=== PATIENT | female | born 1945 | race Hispanic/Latino ===

== ENCOUNTER → 2017-11-12 | Day surgery (SDC) | payer MEDICARE ==
[2017-11-10 13:36] LABS: BASOPHILS # (AUTO) 0.1 (0.0-0.1); BASOPHILS % 0.5 % (0.0-1.0); EOSINOPHILS # (AUTO) 0.1 (0.0-0.4); EOSINOPHILS % 1.1 % (0.0-6.0); HEMATOCRIT 38.5 % (34.2-44.1); HEMOGLOBIN 13.2 g/dL (12.0-16.0); LYMPHOCYTES # (AUTO) 2.7 (1.0-3.2); LYMPHOCYTES % 29.6 % (18.0-39.1); MEAN CORPUSCULAR HEMOGLOBIN 29.3 pg (28-32); MEAN CORPUSCULAR HGB CONC 34.3 g/dL (31-35); MEAN CORPUSCULAR VOLUME 85.6 fL (81-99); MONOCYTES # (AUTO) 0.8 (0.2-0.8); MONOCYTES % 8.7 % (4.4-11.3); NEUTROPHILS # (AUTO) 5.5 (2.1-6.9); NEUTROPHILS % 59.9 % (38.7-80.0); PLATELET COUNT 283 x10e3/uL (140-360); RED CELL DISTRIBUTION WIDTH 13.2 % (11.7-14.4)
[~2017-11-12] MED LIST: AMITIZA24 MCG PO; ANORA INH; ATORVASTATIN CA10 MG PO; CEPHALEXIN500 MG PO; CYMBALTA30 MG PO; FENTANYL CITRATE/PF 100MCG/2 ML INJ ONE; GLIMEPIRIDE2 MG PO; LEVOTHYROXINE50 MCG PO; LIDOCAINE HCL 2% LOCAL INJ 5 ML SDV VIAL INJ ONE; LOSARTAN-HCTZ1 EACH PO; METFORMIN HCL500 MG PO; METOPROLOL TART25 MG PO; MIDAZOLAM HCL 2 MG/2 ML VIAL ONE; NEXIUM40 MG PO; OXYBUTYNIN CHLOR5 M1 PO; PROPOFOL IV EMULSION 10 MG/ML 50 ML VIAL ONE; SULFAMETHOXAZO1 EAC1 PO; TYLENOL WITH C1 EACH PO
== END | disposition home or self-care (01) ==
LOC: OR 07:35
PROVIDERS: ATTEND Internal Medicine Gastroenterology
DX: Z12.11 Encounter for screening for malignant neoplasm of colon (principal); K57.30 Diverticulosis of large intestine without perforation or abscess without bleeding; K58.9 Irritable bowel syndrome, unspecified; K64.8 Other hemorrhoids; K21.9 Gastro-esophageal reflux disease without esophagitis; E11.9 Type 2 diabetes mellitus without complications; I10 Essential (primary) hypertension; E78.6 Lipoprotein deficiency; J45.909 Unspecified asthma, uncomplicated; E66.01 Morbid (severe) obesity due to excess calories; F41.9 Anxiety disorder, unspecified; Z01.810 Encounter for preprocedural cardiovascular examination; Z01.812 Encounter for preprocedural laboratory examination; Z68.43 Body mass index [BMI] 50.0-59.9, adult
CPT/HCPCS: 36415 ×2; 82948; 85025; 93005; G0121; J2001; J2250; 45378

== ENCOUNTER 2018-02-09 09:17 | Emergency (ER) | payer MEDICARE, OTHER ==
[~2018-02-09] VITALS: Ht 152.4 cm; Wt 123.4 kg
[~2018-02-09 09:17] MED LIST changes: -FENTANYL CITRATE/PF 100MCG/2 ML INJ ONE; -LIDOCAINE HCL 2% LOCAL INJ 5 ML SDV VIAL INJ ONE; -MIDAZOLAM HCL 2 MG/2 ML VIAL ONE; -PROPOFOL IV EMULSION 10 MG/ML 50 ML VIAL ONE
[2018-02-09] MEDS ORDERED: SODIUM CHLORIDE 0.9% 1000ML 1,000 ML IV STA (09:27)
[2018-02-09] MEDS ORDERED: MORPHINE SULFATE 2 MG/ML SYR IV STA (09:27)
[2018-02-09] MEDS ORDERED: PANTOPRAZOLE 40 MG 10ML VIAL IV STA (09:27)
[2018-02-09] MEDS ORDERED: ONDANSETRON HCL INJ 2 MG/ML VIAL IV STA (09:27)
[2018-02-09 10:08] LABS: BASOPHILS % 0.4 % (0.0-1.0); EOSINOPHILS # (AUTO) 0.1 (0.0-0.4); EOSINOPHILS % 0.9 % (0.0-6.0); HEMOGLOBIN 13.4 g/dL (12.0-16.0); LYMPHOCYTES # (AUTO) 2.1 (1.0-3.2); LYMPHOCYTES % 20.6 % (18.0-39.1); MEAN CORPUSCULAR HEMOGLOBIN 30.5 pg (28-32); MEAN CORPUSCULAR HGB CONC 34.4 g/dL (31-35); MEAN CORPUSCULAR VOLUME 88.6 fL (81-99); MONOCYTES # (AUTO) 0.7 (0.2-0.8); MONOCYTES % 6.8 % (4.4-11.3); NEUTROPHILS # (AUTO) 7.1 (2.1-6.9); NEUTROPHILS % 70.9 % (38.7-80.0); PLATELET COUNT 245 x10e3/uL (140-360); RED CELL DISTRIBUTION WIDTH 12.6 % (11.7-14.4)
--- NOTE | 2018-02-09 10:08 | Diagnostic Imaging Report ---
PROCEDURE: CHEST SINGLE (PORTABLE) COMPARISON: None. INDICATIONS: STOMACH PAIN FINDINGS: Lung volumes are low with vascular crowding in the perihilar regions. No focal consolidation, pleural effusion, or pneumothorax. Tortuosity of the thoracic aorta with rightward tracheal deviation. Cardiomediastinal contour is otherwise within normal limits when accounting for portable, AP technique. No mary kay pneumoperitoneum. Surgical clips project over the right upper quadrant of the abdomen. No acute osseous abnormality. CONCLUSION: Low lung volumes without acute cardiopulmonary abnormality. Dictated by: Benedicto Moscoso M.D. on 02/09/2018 at 10:13 Electronically approved by: Benedicto Moscoso M.D. on 02/09/2018 at 10:13
[2018-02-09 10:11] LABS: INR 1.04; PROTHROMBIN TIME 12.8 seconds (11.9-14.5)
[2018-02-09 10:13] LABS: PARTIAL THROMBOPLASTIN TIME 23.5 seconds (23.8-35.5)
[2018-02-09 10:21] LABS: ALANINE AMINOTRANSFERASE 20 IU/L (0-55); ALBUMIN 3.8 g/dL (3.5-5.0); ALKALINE PHOSPHATASE 69 IU/L (40-150); AMYLASE 32 U/L (25-125); BLOOD UREA NITROGEN 16 mg/dL (7-26); BUN/CREATININE RATIO 21 (6-25); CALCIUM 9.9 mg/dL (8.4-10.2); CARBON DIOXIDE 27 mmol/L (22-29); CHLORIDE 103 mmol/L (98-107); CREATINE KINASE 84 IU/L (29-168); CREATININE, SERUM 0.78 mg/dL (0.57-1.11); EST GLOMERULAR FILTRATION RATE > 60 ML/MIN (60-); GLUCOSE 229 mg/dL (74-118); LIPASE 10 U/L (8-78); MAGNESIUM 1.8 MG/DL (1.3-2.1); SODIUM 141 mmol/L (136-145)
[2018-02-09 10:25] LABS: CLARITY,URINE CLOUDY (CLEAR); COLOR,URINE YELLOW (YELLOW); LEUKOCYTE ESTERASE ,URINE 2+ (NEGATIVE)
[2018-02-09 10:26] LABS: BILIRUBIN,URINE NEGATIVE (NEGATIVE); KETONES,URINE NEGATIVE (NEGATIVE); NITRITE,URINE NEGATIVE (NEGATIVE); PROTEIN,URINE DIPSTICK NEGATIVE (NEGATIVE); URINE UROBILINOGEN 0.2 mg/dL (0.2 - 1)
[2018-02-09 10:27] LABS: WBC,URINE (MAN) >50 /HPF (0-5)
[2018-02-09 10:28] LABS: AMORPHOUS SEDIMENT,URINE FEW (FEW); BACTERIA,URINE MANY /HPF; EPITHELIAL CELLS,URINE FEW /LPF; RBC,URINE 0-5 /HPF (0-5)
[2018-02-09] MEDS ORDERED: LEVOFLOXACIN 500MG/D5W 100ML 100 ML IV ONE (10:30)
--- NOTE | 2018-02-09 12:55 | Diagnostic Imaging Report ---
PROCEDURE: CT ABDOMEN AND PELVIS WITH CONTRAST TECHNIQUE: The abdomen and pelvis were scanned utilizing a multidetector helical scanner from the diaphragm to the lesser trochanter after the IV administration of 100 cc of Isovue 370 and the oral administration of water. Coronal and sagittal multiplanar reformations were obtained. COMPARISON: None. INDICATIONS: ABDOMEN PAIN FINDINGS: LOWER THORAX: Scattered fibrotic changes in the right middle lobe and bilateral lower lobes. No pleural or pericardial effusion.. HEPATOBILIARY: No focal hepatic lesion or intrahepatic biliary ductal dilatation. Calcified granulomata in segments 2 and 3. Status post cholecystectomy with surgical clips in the gallbladder fossa. SPLEEN: No splenomegaly. Small splenule in the hilum. PANCREAS: No focal masses or ductal dilatation. ADRENALS: No adrenal nodules. KIDNEYS/URETERS: Subcentimeter hypoattenuating lesions in the kidneys, too small to further characterize but likely to represent small cysts. No hydronephrosis. No renal or ureteral calculi. PELVIC ORGANS/BLADDER: The urinary bladder is unremarkable. Uterus is anteflexed and appears normal. No adnexal mass. PERITONEUM / RETROPERITONEUM: No ascites. No pneumoperitoneum. LYMPH NODES: No lymphadenopathy. VESSELS: Atherosclerotic calcification of the abdominal aorta and branch vessels without aneurysmal dilatation. Portal vein, splenic vein, and central superior mesenteric vein are patent. GI TRACT: There are a few diverticula along the course of the sigmoid colon without evidence of diverticulitis. The appendix is not identified and may have been removed. Prominence of the gastric rugal folds as a consequence of under distention. No small bowel dilatation to suggest obstruction. BONES AND SOFT TISSUES: No focal soft tissue abnormalities. No osseous destructive lesions. Degenerative changes of the hip joints, sacroiliac joints, and lumbar spine. IMPRESSION: No acute intra-abdominal or pelvic CT abnormalities. Large bowel diverticulosis without findings of diverticulitis. Atherosclerotic vascular disease. Dictated by: Benedicto Moscoso M.D. on 02/09/2018 at 13:00 Electronically approved by: Benedicto Moscoso M.D. on 02/09/2018 at 13:00
[2018-02-09 14:51] VITALS: BP 159/69
[2018-02-09] MEDS ORDERED: SODIUM CHLORIDE 0.9% 50ML 50 ML ONE (21:12)
[2018-02-09] MEDS ORDERED: IOPAMIDOL 370 MG/ML 200 ML INFUS..BTL INJ ONE (21:12)
== END 2018-02-09 15:00 | disposition home or self-care (01) ==
LOC: ER 09:17
DX: R10.32 Left lower quadrant pain (principal); I10 Essential (primary) hypertension; E78.5 Hyperlipidemia, unspecified; K21.9 Gastro-esophageal reflux disease without esophagitis; E66.9 Obesity, unspecified
CPT/HCPCS: 36415; 71045; 74177; 80053; 81001; 82150; 82550; 82553; 83605; 83690; 83735; 84484; 85025; 85610; 85730; 93005; 99284; J1956; J2270; J2405; J7030; Q9967

== ENCOUNTER 2018-02-11 16:08 | Emergency (ER) | payer MEDICARE ==
[~2018-02-11] VITALS: Ht 152.4 cm; Wt 122.5 kg
[2018-02-11] MEDS ORDERED: SODIUM CHLORIDE 0.9% 1000ML 1,000 ML IV ONE ×2 (16:45→17:15)
[2018-02-11 16:52] LABS: BASOPHILS % 0.4 % (0.0-1.0); EOSINOPHILS % 0.2 % (0.0-6.0); HEMATOCRIT 38.9 % (34.2-44.1); HEMOGLOBIN 13.6 g/dL (12.0-16.0); MEAN CORPUSCULAR HEMOGLOBIN 30.1 pg (28-32); MEAN CORPUSCULAR VOLUME 86.1 fL (81-99); MONOCYTES # (AUTO) 0.8 (0.2-0.8); NEUTROPHILS % 70.7 % (38.7-80.0); PLATELET COUNT 238 x10e3/uL (140-360); RED BLOOD COUNT 4.52 x10e6/uL (3.6-5.1); RED CELL DISTRIBUTION WIDTH 12.4 % (11.7-14.4)
[2018-02-11 17:09] LABS: ALANINE AMINOTRANSFERASE 20 IU/L (0-55); ALBUMIN 3.6 g/dL (3.5-5.0); ALBUMIN/GLOBULIN RATIO 0.9 (0.8-2.0); ALKALINE PHOSPHATASE 70 IU/L (40-150); ANION GAP 16.9 mmol/L (8-16); BLOOD UREA NITROGEN 12 mg/dL (7-26); BUN/CREATININE RATIO 16 (6-25); CALCIUM 9.6 mg/dL (8.4-10.2); CARBON DIOXIDE 22 mmol/L (22-29); CHLORIDE 99 mmol/L (98-107); CREATININE, SERUM 0.75 mg/dL (0.57-1.11); EST GLOMERULAR FILTRATION RATE > 60 ML/MIN (60-); GLUCOSE 184 mg/dL (74-118); POTASSIUM 3.9 mmol/L (3.5-5.1); SODIUM 134 mmol/L (136-145)
[2018-02-11] MEDS ORDERED: KETOROLAC TROMETHAMINE 30 MG/ML VIAL IV STA (17:11)
[2018-02-11] MEDS ORDERED: MORPHINE SULFATE 5 MG/ML VIAL IV ONE (17:15)
[2018-02-11] MEDS ORDERED: METOCLOPRAMIDE HCL 10 MG/2ML VIAL IV ONE (17:15)
[2018-02-11] MEDS ORDERED: KETOROLAC TROMETHAMINE 30 MG/ML VIAL IV SCH (17:30)
[2018-02-11] MEDS ORDERED: MORPHINE SULFATE INJ 4 MG/ML INJ IV NR (17:45)
[2018-02-11] MEDS ORDERED: MELOXICAM7.5 MG PO (18:08)
[2018-02-11] MEDS ORDERED: ULTRAM 50MG50 MG PO (18:08)
[2018-02-11] MEDS ORDERED: LOSARTAN-HCTZ1 EAC2 PO (18:08)
[2018-02-11] MEDS ORDERED: GABAPENTIN300 MG PO (18:08)
[2018-02-11] MEDS ORDERED: LEVAQUIN500 MG PO (18:08)
[2018-02-11] MEDS ORDERED: LASIX40 MG PO (18:08)
[2018-02-11] MEDS ORDERED: CALCET TABLET1 EACH (18:11)
[2018-02-11 18:32] LABS: CLARITY,URINE CLEAR (CLEAR); COLOR,URINE YELLOW (YELLOW); LEUKOCYTE ESTERASE ,URINE NEGATIVE (NEGATIVE)
[2018-02-11 18:33] LABS: BILIRUBIN,URINE NEGATIVE (NEGATIVE); KETONES,URINE NEGATIVE (NEGATIVE); NITRITE,URINE NEGATIVE (NEGATIVE); PROTEIN,URINE DIPSTICK NEGATIVE (NEGATIVE); URINE UROBILINOGEN 0.2 mg/dL (0.2 - 1)
[2018-02-11 18:45] LABS: EPITHELIAL CELLS,URINE MODERATE /LPF; WBC,URINE (MAN) 0-5 /HPF (0-5)
--- NOTE | 2018-02-11 18:49 | Diagnostic Imaging Report ---
PROCEDURE: CT ABDOMEN AND PELVIS WITHOUT CONTRAST TECHNIQUE: The abdomen and pelvis were scanned utilizing a multidetector helical scanner from the diaphragm to the lesser trochanter after the oral administration of water. No IV contrast was administered per protocol. Coronal and sagittal multiplanar reformations were obtained. COMPARISON: [facility], CT, CT ABDOMEN/PELVIS W, 02/09/2018, 12:20. INDICATIONS: left flank, stone protocol FINDINGS: ABSENCE OF INTRAVENOUS CONTRAST DECREASES SENSITIVITY FOR DETECTION OF FOCAL LESIONS AND VASCULAR PATHOLOGY. LOWER THORAX: Stable fibrotic changes/scarring in the right middle lobe and bilateral lower lobes. HEPATOBILIARY: Borderline low attenuation of the hepatic parenchyma, likely reflecting mild steatosis. Stable calcified granulomas in segment II/III. No focal lesions. No biliary ductal dilation. Cholecystectomy clips. SPLEEN: No splenomegaly. PANCREAS: No focal masses or ductal dilatation. ADRENALS: No adrenal nodules. KIDNEYS/URETERS: No renal or ureteral calculi, hydronephrosis, or obstruction. No contour abnormalities. PELVIC ORGANS/BLADDER: Bladder and uterus are unremarkable. No adnexal masses. PERITONEUM / RETROPERITONEUM: No free air or fluid. LYMPH NODES: No lymphadenopathy. VESSELS: Mild atherosclerotic calcification of the abdominal aorta. GI TRACT: No bowel dilation or evidence of obstruction. Stable few scattered diverticula in the sigmoid colon, without diverticulitis. BONES AND SOFT TISSUES: No aggressive lytic lesions. Multilevel degenerative disc changes in the lower thoracic and lumbosacral spine. Degenerative changes in bilateral hip and sacroiliac joints. Soft tissues are unremarkable. IMPRESSION: 1. No renal, ureteral, or bladder calculi, hydronephrosis, or obstruction. 2. No acute abdominopelvic abnormalities, in this noncontrast exam. 3. Mild hepatic steatosis. Michele Ledezma M.D. Dictated by: Michele Ledezma M.D. on 02/11/2018 at 18:54 Electronically approved by: Michele Ledezma M.D. on 02/11/2018 at 18:54
[2018-02-11] MEDS ORDERED: DEXAMETHASONE SOD PHOS 10 MG/1 ML VIAL IV ONE (19:15)
[2018-02-11] MEDS ORDERED: HYDROCODONE/APAP 7.5MG-325MG 1 EA TAB PO ONE (19:15)
[2018-02-11] MEDS ORDERED: CYCLOBENZAPRINE HCL 10 MG TAB PO ONE (19:15)
[2018-02-11 19:42] VITALS: BP 127/56
== END 2018-02-11 20:16 | disposition home or self-care (01) ==
LOC: ER 16:08
DX: R06.02 Shortness of breath (principal); R10.9 Unspecified abdominal pain; M54.5 Low back pain; M51.34 Other intervertebral disc degeneration, thoracic region; M51.16 Intervertebral disc disorders with radiculopathy, lumbar region
CPT/HCPCS: 36415; 74176; 80053; 81001; 84484; 85025; 87086; 93005; 96374; 96375; 99284; J1100; J1885; J2270; J2765; J7030